=== PATIENT | male | born 2000 | race Caucasian/White ===

== ENCOUNTER 2021-12-04 09:52 | Outpatient (CLI) | payer OTHER, SELFPAY | END 2021-12-04 09:53 | disposition home or self-care (01) | LOC: ANHAUDIO 09:54 | PROVIDERS: Visit Provider Otolaryngology | DX: H69.93 Unspecified Eustachian tube disorder, bilateral (principal); H90.12 Conductive hearing loss, unilateral, left ear, with unrestricted hearing on the contralateral side | CPT/HCPCS: 92557; 92567 ==